=== PATIENT | male | born 1995 | race African-American/Black ===

== ENCOUNTER 2024-09-23 13:42 | Inpatient (IN) | payer OTHER ==
[~2024-09-23] VITALS: Ht 167.6 cm; Wt 82.6 kg
[2024-09-23] MEDS: ONDANSETRON HCL 4MG/2ML INJ IV STA (13:50)
[2024-09-23] MEDS: MORPHINE SULFATE 4 MG/ML INJ (FOR IV/IM USE) IV STA (13:50)
[2024-09-23] MEDS: SODIUM CHLORIDE 0.9% 1,000 ML IV ONE (14:19)
[2024-09-23 15:13] LABS: BASOPHILS % 0.2 % (0.0-2.0); EOSINOPHILS % 0.4 % (0.0-5.0); HEMATOCRIT. 38.4 % (42.0-52.0); HEMOGLOBIN. 12.1 g/dL (14.0-18.0); LYMPHOCYTES % 13.6 % (20.0-50.0); MEAN CORPUSCULAR HEMOGLOBIN 26.2 pg (28.0-32.0); MEAN CORPUSCULAR HGB CONC 31.5 g/dL (31.0-37.0); MEAN CORPUSCULAR VOLUME 83.2 fL (80.0-94.0); MEAN PLATELET VOLUME 8.9 fl (7.4-10.4); MONOCYTES % 6.6 % (2.0-8.0); NEUTROPHILS % 79.2 % (40.0-76.0); PLATELET 169 x1000/uL (130-400); RED BLOOD CELL COUNT 4.62 mill/uL (4.7-6.1); RED CELL DISTRIBUTION WIDTH 14.4 % (11.6-14.6); WHITE BLOOD COUNT 18.4 x1000/uL (4.5-11.0)
[2024-09-23 15:16] LABS: CARBON DIOXIDE 28 mEq/L (21-32); CHLORIDE 106 mEq/L (98-107); POTASSIUM 3.4 mEq/L (3.5-5.1); SODIUM 144 mEq/L (136-145)
[2024-09-23 15:17] LABS: CALCIUM 9.1 mg/dL (8.7-10.4)
[2024-09-23 15:21] LABS: CREATININE 1.2 mg/dL (0.6-1.3)
[2024-09-23 15:22] LABS: GLUCOSE 132 mg/dL (70-105); PROTHROMBIN TIME 10.6 sec (9.6-11.0); UREA NITROGEN BLOOD 11 mg/dL (9-23)
[2024-09-23 15:23] LABS: ALANINE AMINOTRANSFERASE 14 IU/L (10-49); ASPARTATE AMINOTRANSFERASE 19 IU/L (<34)
[2024-09-23 15:24] LABS: ALBUMIN 4.3 g/dL (3.2-4.8); BILIRUBIN DIRECT 0.2 mg/dL (<=3.0); BILIRUBIN TOTAL 0.7 mg/dL (0.1-1.0); PROTEIN TOTAL 6.6 g/dL (6.0-8.3)
[2024-09-23] MEDS: ONDANSETRON HCL 4MG/2ML INJ IV ONE (16:11)
[2024-09-23] MEDS: MORPHINE SULFATE 4 MG/ML INJ (FOR IV/IM USE) IV ONE (16:11)
[2024-09-23] MEDS: KETOROLAC 15MG/ML VIAL IV ONE (17:01)
[2024-09-23] MEDS: IOHEXOL-300 100 ML BOTTLE ONE (17:31)
[2024-09-23 21:00] VITALS: BP 115/61; PULSE 73; RESP 15; TEMP 36.7
[2024-09-23] MEDS: CEFTRIAXONE 1GM/50ML 50 ML IV NR (23:00)
[2024-09-23] MEDS: SODIUM CHLORIDE 0.9% 1,000 ML IV SCH (23:00)
[2024-09-24] VITALS: BP 119/74; PULSE 54; RESP 18; TEMP 37.1; O2SAT 98
[2024-09-24 04:00] VITALS: BP 132/85; PULSE 63; RESP 18; TEMP 37.4; O2SAT 98
[2024-09-24 07:03] LABS: BASOPHILS % 0.2 % (0.0-2.0); EOSINOPHILS % 0.1 % (0.0-5.0); HEMATOCRIT. 36.2 % (42.0-52.0); HEMOGLOBIN. 11.7 g/dL (14.0-18.0); LYMPHOCYTES % 15.3 % (20.0-50.0); MEAN CORPUSCULAR HEMOGLOBIN 26.5 pg (28.0-32.0); MEAN CORPUSCULAR HGB CONC 32.2 g/dL (31.0-37.0); MEAN CORPUSCULAR VOLUME 82.4 fL (80.0-94.0); MEAN PLATELET VOLUME 9.4 fl (7.4-10.4); MONOCYTES % 9.5 % (2.0-8.0); NEUTROPHILS % 74.9 % (40.0-76.0); PLATELET 166 x1000/uL (130-400); RED CELL DISTRIBUTION WIDTH 14.5 % (11.6-14.6); WHITE BLOOD COUNT 10.2 x1000/uL (4.5-11.0)
[2024-09-24 07:05] LABS: CARBON DIOXIDE 26 mEq/L (21-32); CHLORIDE 104 mEq/L (98-107); POTASSIUM 3.4 mEq/L (3.5-5.1); SODIUM 139 mEq/L (136-145)
[2024-09-24 07:10] LABS: CREATININE 1.2 mg/dL (0.6-1.3)
[2024-09-24 07:11] LABS: GLUCOSE 95 mg/dL (70-105); UREA NITROGEN BLOOD 11 mg/dL (9-23)
[2024-09-24 08:00] VITALS: BP 134/70; PULSE 63; RESP 19; TEMP 36.6; O2SAT 99
[2024-09-24] MEDS: TAMSULOSIN HCL 0.4MG SR CAPSULE PO SCH (10:52)
[2024-09-24 12:00] VITALS: BP 125/75; PULSE 70; RESP 18; TEMP 36.6; O2SAT 100
[2024-09-24 16:00] VITALS: BP 136/74; PULSE 74; RESP 19; TEMP 36.4; O2SAT 99
[2024-09-24] MEDS ORDERED: ACETAMINOPHEN 325MG TABLET PO PRN (16:45)
[2024-09-24] MEDS ORDERED: TAMSULOSIN HCL 0.4MG SR CAPSULE PO SCH (16:45)
[2024-09-24] MEDS ORDERED: SODIUM CHLORIDE 0.9% 1,000 ML IV SCH (16:45)
[2024-09-24] MEDS ORDERED: NALOXONE HCL 0.4MG/ML VIAL IV PRN (17:00)
[2024-09-24] MEDS: POTASSIUM CHLORIDE 20MEQ TABLET SR PO SCH (17:28)
[2024-09-24 20:00] VITALS: BP 118/73; PULSE 61; RESP 20; TEMP 36.7; O2SAT 95
[2024-09-24] MEDS: ONDANSETRON HCL 4MG/2ML INJ IV PRN (22:08)
[2024-09-24] MEDS: HYDROCODONE/ACETAMINOPHEN 10/325MG TABLET PO PRN (22:08)
[2024-09-24] MEDS: CEFTRIAXONE 1GM/50ML 50 ML IV NR (22:09)
[2024-09-25] VITALS: BP 133/74; PULSE 72; RESP 20; TEMP 36.3; O2SAT 98
[2024-09-25 04:00] VITALS: BP 150/89; PULSE 64; RESP 20; TEMP 36.7; O2SAT 100
[2024-09-25 06:11] LABS: BASOPHILS % 0.3 % (0.0-2.0); EOSINOPHILS % 1.3 % (0.0-5.0); HEMATOCRIT. 34.2 % (42.0-52.0); HEMOGLOBIN. 11.2 g/dL (14.0-18.0); LYMPHOCYTES % 42.6 % (20.0-50.0); MEAN CORPUSCULAR HGB CONC 32.8 g/dL (31.0-37.0); MEAN CORPUSCULAR VOLUME 82.1 fL (80.0-94.0); MEAN PLATELET VOLUME 9.1 fl (7.4-10.4); MONOCYTES % 8.4 % (2.0-8.0); NEUTROPHILS % 47.4 % (40.0-76.0); PLATELET 147 x1000/uL (130-400); RED BLOOD CELL COUNT 4.17 mill/uL (4.7-6.1); RED CELL DISTRIBUTION WIDTH 13.9 % (11.6-14.6); WHITE BLOOD COUNT 7.2 x1000/uL (4.5-11.0)
[2024-09-25] MEDS: MORPHINE SULFATE 4 MG/ML INJ (FOR IV/IM USE) IV SCH (06:39)
[2024-09-25 06:43] LABS: CHLORIDE 106 mEq/L (98-107); POTASSIUM 3.5 mEq/L (3.5-5.1); SODIUM 139 mEq/L (136-145)
[2024-09-25 06:44] LABS: CALCIUM 8.5 mg/dL (8.7-10.4); CARBON DIOXIDE 26 mEq/L (21-32)
[2024-09-25 06:49] LABS: GLUCOSE 82 mg/dL (70-105); UREA NITROGEN BLOOD 10 mg/dL (9-23)
[2024-09-25 08:00] VITALS: BP 124/73; PULSE 62; RESP 18; TEMP 36.8; O2SAT 100
[2024-09-25] MEDS: PANTOPRAZOLE SODIUM 40 MG/VIAL IV SCH (10:17)
[2024-09-25] MEDS ORDERED: KETOROLAC 30MG/ML VIAL IV PRN (10:45)
[2024-09-25 12:00] VITALS: BP 124/71; PULSE 72; RESP 18; TEMP 36.6; O2SAT 99
[2024-09-25] MEDS: DIAZEPAM 5 MG TABLET PO SCH (15:27)
[2024-09-25] MEDS: KETOROLAC 30MG/ML VIAL IV SCH (15:39)
[2024-09-25 16:00] VITALS: BP 136/76; PULSE 60; RESP 18; TEMP 36.9; O2SAT 100
[2024-09-25 20:00] VITALS: BP 139/72; PULSE 64; RESP 20; TEMP 36.3; O2SAT 100
[2024-09-26] VITALS: BP 120/71; PULSE 60; RESP 20; TEMP 36.7; O2SAT 98
[2024-09-26 04:00] VITALS: BP 122/77; PULSE 65; RESP 20; TEMP 36.4; O2SAT 100
[2024-09-26] MEDS ORDERED: TAMS-54 PO (07:41)
[2024-09-26] MEDS ORDERED: LEVO-65 MT (07:41)
[2024-09-26] MEDS ORDERED: IBUP-2029 MT (07:41)
[2024-09-26 08:00] VITALS: BP 126/72; PULSE 64; RESP 18; TEMP 36.6; O2SAT 99
[2024-09-26] MEDS: DOCUSATE SODIUM 250MG CAPSULE PO NR (11:35)
[2024-09-26 11:41] VITALS: BP 126/72; PULSE 64; TEMP 97.8; O2SAT 99
[2024-09-26 12:00] VITALS: BP 120/72; PULSE 62; RESP 18; TEMP 36.6; O2SAT 100
== END 2024-09-26 13:13 | disposition home or self-care (01) | DRG 465 ==
LOC: ER 13:42 → 6EST 18:36 → EDBEDREQTM 18:38 → EDBEDREQ 18:38 → ENRESERV 20:19
PROVIDERS: ADMIT Internal Medicine; ATTEND Internal Medicine
DX: N13.2 Hydronephrosis with renal and ureteral calculous obstruction (principal); E87.6 Hypokalemia
CPT/HCPCS: 36415; 74177; 80048; 80076; 83735; 85025; 86850; 86900; 96361; 96374; 96375; 96376; 99285; J0696; J1885; J2270; J2405; J2470; J7030; Q9967